=== PATIENT | female | born 1980 | race Caucasian/White ===

== ENCOUNTER 2017-09-07 17:03 | Emergency (ER) | payer SELFPAY ==
[2017-09-07 17:10] VITALS: RESP 17
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
[2017-09-07] MEDS ORDERED: ACETAMINOPHEN 500 MG TAB PO ONE (18:25)
[2017-09-07] MEDS ORDERED: SKIN ADHESIVE (DERMABOND) 1 EACH TP ONE (19:09)
[2017-09-07] MEDS ORDERED: AMOXICILLIN/CLAVULANATE POT 875/125 MG TAB PO ONE (19:40)
[2017-09-07 19:55] VITALS: BP 121/80; PULSE 79; TEMP 98.2; O2SAT 94
== END 2017-09-07 19:54 | disposition home or self-care (01) ==
LOC: EEVIPCON 17:03
PROC: 0HQ1XZZ Repair Face Skin, External Approach (ICD-10-PCS; principal; 2017-09-07)
DX: S02.2XXA Fracture of nasal bones, initial encounter for closed fracture (principal); S01.81XA Laceration without foreign body of other part of head, initial encounter; F17.200 Nicotine dependence, unspecified, uncomplicated; Y04.0XXA Assault by unarmed brawl or fight, initial encounter